=== PATIENT | male | born 1990 | race Two or more races ===

== ENCOUNTER 2025-02-21 01:31 | Emergency (ER) | payer SELFPAY ==
[2025-02-21 01:32] VITALS: BMI 28.8
--- NOTE | 2025-02-21 01:34 | EDNOTE_ITS ---
ED General RME/HPI General Chief complaint: General Adult/Misc Complain Stated complaint: FISH HOOK STUCK IN INDEX FINGER Time Seen by Provider: 02/21/25 01:33 Arrival date/time: 02/21/25 01:31 34 year old male present to emergency room with c/o of accidentally getting fish hook in finger tonight. unsure of tetanus status. LOCATION: finger SEVERITY: Symptoms are described as being severe with limitations on activities of daily living QUALITY: Symptoms are described as being dull or achy CONTEXT:fish hook in finger accidently DURATION/TIMING: The symptoms started approximately immediately prior to arrival ago and have been constant this then. ASSOCIATED SYMPTOMS: The patient is unable to identify any other associated symptoms. MODIFYING FACTORS: The patient is unable to identify any alleviating or aggravating symptoms. PERTINENT ROS: no fevers, no headache, no neck or chest pain, no unexplained nausea or vomiting, no focal neurological deficits REVIEW OF SYSTEMS: See History of Present Illness - with the exception of those mentioned in the history of present illness, all other systems reviewed and reported as negative GENERAL: In general the patient is awake, interactive, in an emergency department gurney. HEAD/EYES/EARS/NOSE/THROAT: normo-cephalic, atraumatic, mucus membranes are moist, anicteric, palpebral conjunctiva is pink, trachea is midline. NEUROLOGICAL: cranio-facial features are symmetric, moves all four extremities equally without obvious limitations or weakness. EXTREMITY: no tenderness to palpation over the long bones or large joints of the bilateral upper and lower extremities, no joint swelling, no joint erythema, no signs of trauma, no unilateral leg swelling and no peripheral edema. SKIN: warm, dry, well-perfused, no jaundice, no rash, no telangiectasias or petechia. PSYCH: calm, cooperative, no evidence of psychosis or agitation Related Data Previous Rx's ?Medication ?Instructions ?Recorded cephalexin 500 mg capsule 500 mg PO Q6H 7 days #28 cap s 02/21/25 Allergies Allergy/AdvReac Type Severity Reaction Status Date / Time No Known Allergies Allergy Mild NKA Uncoded 02/21/25 01:33 Course Course Course Narrative: [place] [facility] [place] right? index finger. VS WNL. NAD. Nontoxic appearing. Pt reports decreased sensation to tip but objectively it is grossly intact. See procedure for technique for removal. Pt understand this is high risk for infection keflex 500mg qid for 7 days? s along with strict precautions to seek emergency room care. Also provided S&S of tenosynovitis vs septic joint vs bacteremia.?? Quality Measures none Orders Category Date Time Status Wound Care X1 Care 02/21/25 01:43 Active Tetanus, Diphtheria Toxoids/Pf [Tenivac-Adult] Med 02/21/25 01:43 Once 0.5 ml IMI .ONCE ONE cephALEXin [Keflex] Med 02/21/25 01:43 Once 500 mg PO X1 ONE Vital Signs Vital signs: Vital Signs Temperature 98 F 02/21/25 01:39 Pulse Rate 85 02/21/25 01:39 Respiratory Rate 18 02/21/25 01:39 Blood Pressure 152/91 H 02/21/25 01:39 Pulse Oximetry (%) 99 02/21/25 01:39 Oxygen Delivery Method Room Air 02/21/25 01:39 Procedures -ED Foreign Body Removal Time Out Performed: yes Site: right (index ) Description of foreign body: fish hook Sedation/Analgesia: none Technique: manual removal Confirmed by:: direct visualization Complications: none Post-procedure exam: awake, alert Neurovascular: normal distal pulse, normal capillary fill, distal light touch sensation intact, no signs of compartment syndrome and no change from pre- procedure Discharge Plan Plan Patient Disposition: HOME (Self Care) Health Concerns: Follow with PMD as directed Take tylenol or motrin as need Return to ED if sx worsen Prescriptions/Referrals Prescriptions/Med Rec: New cephalexin 500 mg capsule 500 mg PO Q6H 7 Days Qty: 28 0RF Problem List Clinical Impression: Foreign body finger Patient/Caregiver Discharge Instructions Education Materials: ED Foreign Body Soft Tissue Removed Print Language: Danish Stand Alone Forms: Noa Award Info., Patient Portal Info Letter MDM Medication Administration(s) Medication Administration History Cephalexin HCl (Cephalexin 250 Mg Capsule) 500 mg PO X1 ONE Stop: 02/21/25 01:44 Tetanus/Diphtheria Toxoids (Tetanus,Diphtheria Toxoids/Pf (Adult) 0.5 Ml Syrin ge) 0.5 ml IMi .ONCE ONE Stop: 02/21/25 01:44
[2025-02-21 01:39] VITALS: BP 152/91; PULSE 85; RESP 18; TEMP 36.6; O2SAT 99
[2025-02-21] MEDS: cephALEXin 250 MG CAPSULE 500 MG PO (02:02)
[2025-02-21] MEDS: TETANUS,DIPHTHERIA TOXOIDS/PF (ADULT) 0.5 ML SYRINGE IMi (02:03)
[2025-02-21 02:16] VITALS: RESP 16
== END 2025-02-21 02:16 | disposition home or self-care (01) ==
LOC: SERX 05:31
PROVIDERS: Emergency Provider Emergency Medicine
DX: S60.450A Superficial foreign body of right index finger, initial encounter (principal); W45.8XXA Other foreign body or object entering through skin, initial encounter; Z23 Encounter for immunization
CPT/HCPCS: 90471; 90714; 99282; A9270